=== PATIENT | male | born 1995 | race Caucasian/White ===

== ENCOUNTER 2016-07-26 20:15 | Emergency (ER) | payer BC, OTHER ==
[~2016-07-26] VITALS: Ht 175.3 cm; Wt 105.6 kg
[2016-07-26 20:18] VITALS: TEMP 37; Ht 175.3 cm; Wt 105.6 kg
[2016-07-26] MEDS ORDERED: [UNRECOGNIZED DRUG - CODE] PO (21:00)
--- NOTE | 2016-07-26 21:48 | EMERGENCY ROOM VISIT NOTE ---
History Report prepared by [place]: Jeanne Sneed Under the Supervision of: Dr. Jayesh Smith M.D. First contact with patient: 21:36 Chief Complaint: RECTAL BLEEDING Stated Complaint: BLOOD IN STOOL Nursing Triage Summary: Patient states "I crapped blood." Patient reports soft stool with blood in it. 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 The patient states that he "crapped blood." He notes soft stool with dark red blood in it. Associated symptoms include abdominal discomfort. The patient last took Tylenol 2 days ago. He denies additional medication use. The patient denies chest pain, nausea, vomiting, or any additional associated symptoms. Source of History: patient Onset: FIELD SUPERINTENDENT Position: other (Rectum ) Timing: other (1 episode) Modifying Factors (Worsening): other (None) Associated Symptoms: + abdominal pain, No chest pain, No nausea, No vomiting Review of Systems See HPI for pertinent positives & negatives. A total of 6 systems reviewed and were otherwise negative. Past Medical & Surgical Medical Problems: (1) Patient denies significant medical history Family History Unknown Social History Smoking Status: Never Smoker Alcohol Use: none Drug Use: none Marital Status: single Housing Status: lives with family Occupation Status: student Current/Historical Medications Scheduled Hydrocortisone/Pramoxine (Proctofoam Hc), 1 APPL HI BID Allergies Coded Allergies: Cephalosporins (Unverified Allergy, Severe, HIVES, 07/26/16) Physical Exam Vital Signs Date Time Temp Pulse Resp B/P Pulse Ox O2 Delivery O2 Flow Rate FiO2 07/26/16 22:50 102 16 135/94 97 07/26/16 22:12 101 16 134/81 96 Room Air 07/26/16 20:18 37.0 125 18 149/91 100 Room Air Physical Exam GENERAL: Patient is anxious appearing but in no acute distress. HEENT: No acute trauma, normocephalic atraumatic, mucous membranes moist, no nasal congestion, no scleral icterus. NECK: No stridor, no adenopathy, no meningismus, trachea is midline. LUNGS: No dyspnea. Clear to auscultation and equal bilaterally. No wheeze, no rhonchi. HEART: Regular rate and rhythm. No murmurs, rubs, gallops appreciated. ABDOMEN: Soft, nontender, bowel sounds positive, no masses appreciated, no peritonitis. RECTAL: Anterior anal fissure, brown heme negative stool. BACK: No midline tenderness, no CVA tenderness EXTREMITIES: Normal motion all extremities, no cyanosis, no edema. NEUROLOGIC: Alert and oriented, no acute motor or sensory deficits, no focal weakness, cranial nerves grossly intact. SKIN: No rash, no jaundice, no diaphoresis. Medical Decision & Procedures Laboratory Results 07/26/16 22:00 Red Blood Count 5.64, Mean Corpuscular Volume 87.2, Mean Corpuscular Hemoglobin 30.0, Mean Corpuscular Hemoglobin Concent 34.3, Mean Platelet Volume 9.1, Neutrophils (%) (Auto) 77.7, Lymphocytes (%) (Auto) 16.0, Monocytes (%) (Auto) 5.4, Eosinophils (%) (Auto) 0.3, Basophils (%) (Auto) 0.2, Neutrophils # (Auto) 8.67, Lymphocytes # (Auto) 1.78, Monocytes # (Auto) 0.60, Eosinophils # (Auto) 0.03, Basophils # (Auto) 0.02 07/26/16 22:00 Test 07/26/16 22:00 White Blood Count 11.15 K/uL (4.8-10.8) Red Blood Count 5.64 M/uL (4.7-6.1) Hemoglobin 16.9 g/dL (14.0-18.0) Hematocrit 49.2 % (42-52) Mean Corpuscular Volume 87.2 fL (80-100) Mean Corpuscular Hemoglobin 30.0 pg (25-34) Mean Corpuscular Hemoglobin Concent 34.3 g/dl (32-36) Platelet Count 327 K/uL (130-400) Mean Platelet Volume 9.1 fL (7.4-10.4) Neutrophils (%) (Auto) 77.7 % Lymphocytes (%) (Auto) 16.0 % Monocytes (%) (Auto) 5.4 % Eosinophils (%) (Auto) 0.3 % Basophils (%) (Auto) 0.2 % Neutrophils # (Auto) 8.67 K/uL (1.4-6.5) Lymphocytes # (Auto) 1.78 K/uL (1.2-3.4) Monocytes # (Auto) 0.60 K/uL (0.11-0.59) Eosinophils # (Auto) 0.03 K/uL (0-0.5) Basophils # (Auto) 0.02 K/uL (0-0.2) RDW Standard Deviation 38.8 fL (36.4-46.3) RDW Coefficient of Variation 12.2 % (11.5-14.5) Immature Granulocyte % (Auto) 0.4 % Immature Granulocyte # (Auto) 0.05 K/uL (0.00-0.02) Anion Gap 10.0 mmol/L (3-11) Est Creatinine Clear Calc Drug Dose 141.1 ml/min Estimated GFR () 125.0 Estimated GFR (Non- 107.9 BUN/Creatinine Ratio 10.1 (10-20) Calcium Level 9.2 mg/dl (8.5-10.1) Laboratory results as reviewed by me. ED Course 2139: The patient was evaluated in room B5. A complete history and physical exam was performed. 2249: Reevaluated the patient. Discussed results and discharge instructions with the patient and his mother: They verbalized understanding and agreement. The patient is ready for discharge. He will follow up with [facility]. Medical Decision Differential: Diverticulitis, AVM, Coagulopathy, Colitis, Malignancy, Upper GI bleed, Fissure, Hemorrhoids, amongst other pathologies entertained. 20 yr old male arrives for evaluation of single episode blood in stool. Does note some lower abdominal discomfort though has non-surgical abdomen which is soft. Rectal exam with fissure and brown stool. No current bleeding. Initial tachy though very clearly anxiety related as after calming down HR normal. HgB normal and WBC not significantly elevated. Reviewed symptoms requiring return. Rectal ProctoFoam given findings. Stable without symptoms of infection. No coagulopathy nor blood thinner use. No hemorrhoid appreciated. Impression Primary Impression: Rectal bleed Scribe Attestation The scribe's documentation has been prepared under my direction and personally reviewed by me in its entirety. I confirm that the note above accurately reflects all work, treatment, procedures, and medical decision making performed by me. Departure Information Dispostion Home / Self-Care Prescriptions Hydrocortisone/Pramoxine (Proctofoam Hc) Aer 1 APPL HI BID, #10 GM 1 Refill Prov: Jayesh Smith M.D. 07/26/16 Referrals Theron Theodore MD Forms HOME CARE DOCUMENTATION FORM, IMPORTANT VISIT INFORMATION, WORK / SCHOOL INSTRUCTIONS Patient Instructions Bleeding Rectal, My [facility]
[2016-07-26 22:05] LABS: BASO % 0.2 %; BASO ABS # 0.02 K/uL (0-0.2); COMPLETE YES; EOS % 0.3 %; HEMATOCRIT 49.2 % (42-52); IG% 0.4 %; LYMPH ABS # 1.78 K/uL (1.2-3.4); MEAN CELL VOLUME 87.2 fL (80-100); MEAN CORPUSCULAR HGB CONC 34.3 g/dl (32-36); MEAN PLATELET VOLUME 9.1 fL (7.4-10.4); MONO % 5.4 %; NEUT % 77.7 %; PLATELET COUNT 327 K/uL (130-400); RED BLOOD COUNT 5.64 M/uL (4.7-6.1); WHITE BLOOD COUNT 11.15 K/uL (4.8-10.8)
[2016-07-26 22:27] LABS: BUN/CREATININE RATIO 10.1 (10-20); POTASSIUM 3.8 mmol/L (3.5-5.1)
[2016-07-26 22:29] LABS: CALCIUM 9.2 mg/dl (8.5-10.1)
[2016-07-26] MEDS ORDERED: HYDR1AER23 PR (22:40)
[2016-07-26 22:50] VITALS: BP 135/94; PULSE 102; O2SAT 97
== END 2016-07-26 22:55 | disposition home or self-care (01) ==
LOC: C.EDB 20:16
DX: K62.5 Hemorrhage of anus and rectum (principal)